=== PATIENT | male | born 1930 | race Asian ===

== ENCOUNTER → 2016-05-27 | Outpatient (CLI) | payer MEDICARE | LOC: OD 08:44 | PROVIDERS: ATTEND Family Medicine | DX: E11.65 Type 2 diabetes mellitus with hyperglycemia (principal) | CPT/HCPCS: 36415; 83036 ==

== ENCOUNTER → 2016-10-30 | Outpatient (CLI) | payer MEDICARE ==
[2016-10-30 10:40] LABS: ANION GAP 11 (5-19); BLOOD UREA NITROGEN 18 mg/dL (7-20); CALCIUM 9.1 mg/dL (8.4-10.2); CARBON DIOXIDE 22 mmol/L (22-30); CHLORIDE 106 mmol/L (98-107); CHOLESTEROL 196.73 mg/dL (0-200); CREATININE RESULT 0.88 mg/dL (0.52-1.25); Direct HDL 43 mg/dL (>40); GLUCOSE 165 mg/dL (75-110); POTASSIUM 4.4 mmol/L (3.6-5.0); SODIUM 138.5 mmol/L (137-145); TRIGLYCERIDES 96 mg/dL (<150); URIC ACID 6.4 mg/dL (3.5-8.5)
[2016-10-30 10:51] LABS: DIRECT LDL 111 mg/dL (<100)
== END ==
LOC: OD 09:17
PROVIDERS: ATTEND Family Medicine
DX: E11.9 Type 2 diabetes mellitus without complications (principal); E78.5 Hyperlipidemia, unspecified; I10 Essential (primary) hypertension; Z79.899 Other long term (current) drug therapy; M10.9 Gout, unspecified
CPT/HCPCS: 36415; 80048; 80061; 82043; 83036; 84443; 84550

== ENCOUNTER → 2017-04-21 | Outpatient (CLI) | payer MEDICARE | LOC: OD 09:29 | PROVIDERS: ATTEND Family Medicine | DX: E11.65 Type 2 diabetes mellitus with hyperglycemia (principal) | CPT/HCPCS: 36415; 83036 ==

== ENCOUNTER → 2017-10-20 | Outpatient (CLI) | payer MEDICARE ==
[2017-10-20 11:21] LABS: ANION GAP 14 (5-19); BLOOD UREA NITROGEN 14 mg/dL (7-20); CALCIUM 9.7 mg/dL (8.4-10.2); CARBON DIOXIDE 24 mmol/L (22-30); CHLORIDE 106 mmol/L (98-107); CHOLESTEROL 152.27 mg/dL (0-200); GLUCOSE 148 mg/dL (75-110); POTASSIUM 4.9 mmol/L (3.6-5.0); SODIUM 143.6 mmol/L (137-145); TRIGLYCERIDES 178 mg/dL (<150); URIC ACID 6.8 mg/dL (3.5-8.5)
[2017-10-20 11:31] LABS: DIRECT LDL 71 mg/dL (<100)
[2017-10-20 11:36] LABS: VLDL CHOLESTEROL 35.6 mg/dL (10-31)
[2017-10-21 13:38] LABS: CREATININE URINE 123.1 mg/dL (Not Estab.); MICROALBUMIN URINE 34.4 ug/mL (Not Estab.)
== END ==
LOC: OD 09:56
PROVIDERS: ATTEND Family Medicine
DX: E11.9 Type 2 diabetes mellitus without complications (principal); E78.5 Hyperlipidemia, unspecified; I10 Essential (primary) hypertension; M10.9 Gout, unspecified; Z79.899 Other long term (current) drug therapy
CPT/HCPCS: 36415; 80048; 80061; 82043; 82570; 83036; 84443; 84550

== ENCOUNTER 2018-01-13 06:17 | Day surgery (SDC) | payer MEDICARE ==
[2018-01-06 10:58] LABS: HEMATOCRIT 41.6 % (37.9-51.0); MEAN CORPUSCULAR HEMOGLOBIN 30.1 pg (27.0-33.4); MEAN CORPUSCULAR HGB CONC 33.5 g/dL (32.0-36.0); MEAN CORPUSCULAR VOLUME 90 fl (80-97); PLATELET COUNT 261 10^3/uL (150-450); RED BLOOD COUNT 4.64 10^6/uL (4.35-5.55); RED CELL DISTRIBUTION WIDTH 14.1 % (11.5-14.0); WHITE BLOOD COUNT 5.3 10^3/uL (4.0-10.5)
[2018-01-06 11:24] LABS: ANION GAP 15 (5-19); BLOOD UREA NITROGEN 14 mg/dL (7-20); CALCIUM 9.5 mg/dL (8.4-10.2); CARBON DIOXIDE 25 mmol/L (22-30); CHLORIDE 104 mmol/L (98-107); GLUCOSE 111 mg/dL (75-110); POTASSIUM 4.9 mmol/L (3.6-5.0); SODIUM 143.6 mmol/L (137-145)
--- NOTE | 2018-01-06 22:20 | EKG REPORT ---
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
[~2018-01-13 06:17] MED LIST: ACETAMINOPHEN 325 MG TABLET PO PRN; LACTATED RINGERS 1000 ML IV PRN; LIDOCAINE 0.5% INJ-PF (5 MG/ML) 50 ML SDV SUBCUT PRN
[2018-01-13] MEDS ORDERED: PROPOFOL INJ 200 MG/20 ML VIAL IV ONE (06:44)
[2018-01-13] MEDS ORDERED: LIDOCAINE 2% INJ-PF (20 MG/ML) 10 ML AMPUL ONE (07:06)
[2018-01-13] MEDS ORDERED: FENTANYL CITRATE INJ/PF 100 MCG/2 ML AMPUL IV PRN ×3 (08:20)
[2018-01-13] MEDS ORDERED: PROMETHAZINE HCL INJ 25 MG/1 ML VIAL IV PRN ×2 (08:20)
[2018-01-13] MEDS ORDERED: DIPHENHYDRAMINE HCL 50 MG/ML VIAL IV PRN (08:20)
--- NOTE | 2018-01-13 09:29 | Operative Report ---
Nonrecallable Operative Report DATE OF SURGERY: 01/13/18 PREOPERATIVE DIAGNOSIS: History of colon polyps POSTOPERATIVE DIAGNOSIS: 1. Colon polyps. 2. Small internal hemorrhoids. OPERATION: 1. Colonoscopy to the cecum. 2. Hot biopsy of smaller colon polyps. 3. Snare polypectomy of larger colon polyps. SURGEON: JASON PFEIFFER ANESTHESIA: LMAC TISSUE REMOVED OR ALTERED: 1. Colon polyps at 60 cm 2. 2. Colon polyp at 58 cm. 3. Colon polyp at 35 cm. 4. Colon polyp at 25 cm. COMPLICATIONS: None apparent ESTIMATED BLOOD LOSS: Minimal PROCEDURE: Procedure in detail: After informed consent was obtained, the patient was brought to the operating room and laid in the left lateral decubitus position. The endoscope was inserted into the rectum. It was passed up the rectum, sigmoid colon, descending colon, across the transverse colon, down the ascending colon, and into the cecum. The ileocecal valve and appendiceal orifice were identified. The scope was then withdrawn, circumferentially noting the mucosa. The prep was fair. Multiple washings and suctionings were required in order to visualize the entirety of the mucosa. This was successful. The scope was withdrawn past the ascending colon, transverse colon , and into the descending colon. At approximately 60 cm there were 2 small polyps immediately adjacent to one another. These were removed via hot biopsy forceps in their entirety. The scope was withdrawn back to approximately 58 cm where a larger, pedunculated polyp was identified. This was removed via snare polypectomy. The scope was withdrawn down to approximately 35 cm, within the sigmoid colon. Another diminutive polyp was identified. This was removed via hot biopsy forceps. The scope was withdrawn to approximately 25 cm where a larger, broad-based polyp was identified. This was removed via snare polypectomy. The scope was then withdrawn into the rectum. A retroflexion maneuver was performed, noting small internal hemorrhoids that were not bleeding. The scope was straightened, air was suctioned from the rectum, the scope was removed, and the procedure was concluded. All sponge, instrument, and needle counts were correct 2. Condition: Stable.
--- NOTE | 2018-01-13 09:30 | Discharge Summary ---
Discharge Summary (SDC) - Discharge Final Diagnosis: Colon polyps, small internal hemorrhoids Date of Surgery: 01/13/18 Condition: Stable Referrals: CLAU DOVER MD [Primary Care Provider] - Discharge Diet: As Tolerated Respiratory Treatments at Home: Deep Breathing/Coughing, Incentive Spirometer Discharge Activity: Activity As Tolerated Home Care Assistance: None Needed Report the Following to Your Physician Immediately: Shortness of Breath, Nausea , Vomiting, Increase in Pain, Fever over 101 Degrees, Unusual Bleeding, Redness , Swelling, Warmth, Increased Soreness
[2018-01-13 11:17] VITALS: BP 148/54
== END 2018-01-13 11:17 | disposition home or self-care (01) ==
LOC: END 06:17
PROVIDERS: ATTEND Surgery
DX: D12.6 Benign neoplasm of colon, unspecified (principal); K64.8 Other hemorrhoids; Z86.010 Personal history of colon polyps; I10 Essential (primary) hypertension; E11.9 Type 2 diabetes mellitus without complications; E78.00 Pure hypercholesterolemia, unspecified; M10.9 Gout, unspecified; M19.90 Unspecified osteoarthritis, unspecified site; Z79.899 Other long term (current) drug therapy; Z79.84 Long term (current) use of oral hypoglycemic drugs
CPT/HCPCS: 45384; 45385; 93005; 82962; 85027; 80048; 88305 ×2; 93010; J2704; J3490; 811

== ENCOUNTER → 2018-04-03 | Outpatient (CLI) | payer MEDICARE ==
--- NOTE | 2018-04-03 10:18 | RADIOLOGY REPORT (SQ) ---
EXAM DESCRIPTION: CHEST PA/LATERAL COMPLETED DATE/TIME: 04/03/2018 9:28 am REASON FOR STUDY: WHEEZING COUGH; PREVIOUS POSITIVE PPD COMPARISON: Two-view chest 08/09/2011 EXAM PARAMETERS: NUMBER OF VIEWS: two views TECHNIQUE: Digital Frontal and Lateral radiographic views of the chest acquired. RADIATION DOSE: NA LIMITATIONS: none FINDINGS: LUNGS AND PLEURA: Minimal bibasilar atelectasis. No fluffy alveolar infiltrates worrisome for pneumonia or pulmonary edema. No pleural effusion. No pneumothorax. No cavitary lesions. MEDIASTINUM AND HILAR STRUCTURES: No masses or contour abnormalities. HEART AND VASCULAR STRUCTURES: Borderline cardiomegaly BONES: Osteopenic. No acute findings HARDWARE: None in the chest. OTHER: No other significant finding. IMPRESSION: Minimal right basilar atelectasis TECHNICAL DOCUMENTATION: JOB ID: [id number] [employer]- All Rights Reserved Reading location - IP/workstation name: [email or web address]
== END ==
LOC: OD 09:08
PROVIDERS: ATTEND Family Medicine
DX: R05 Cough (principal); R06.2 Wheezing; J20.9 Acute bronchitis, unspecified; R76.11 Nonspecific reaction to tuberculin skin test without active tuberculosis
CPT/HCPCS: 71046

== ENCOUNTER → 2018-04-20 | Outpatient (CLI) | payer MEDICARE | LOC: OD 09:39 | PROVIDERS: ATTEND Family Medicine | DX: E11.9 Type 2 diabetes mellitus without complications (principal); Z79.899 Other long term (current) drug therapy | CPT/HCPCS: 36415; 83036 ==

== ENCOUNTER → 2018-10-22 | Outpatient (CLI) | payer MEDICARE ==
[2018-10-22 10:01] LABS: ANION GAP 9 (5-19); BLOOD UREA NITROGEN 19 mg/dL (7-20); CALCIUM 9.2 mg/dL (8.4-10.2); CARBON DIOXIDE 25 mmol/L (22-30); CHLORIDE 107 mmol/L (98-107); CHOLESTEROL 115.06 mg/dL (0-200); GLUCOSE 129 mg/dL (75-110); POTASSIUM 4.5 mmol/L (3.6-5.0); SODIUM 140.9 mmol/L (137-145); TRIGLYCERIDES 112 mg/dL (<150); URIC ACID 6.7 mg/dL (3.5-8.5)
[2018-10-22 10:12] LABS: DIRECT LDL 61 mg/dL (<100)
[2018-10-23 12:38] LABS: CREATININE URINE 90.4 mg/dL (Not Estab.); MICROALBUMIN URINE 19.2 ug/mL (Not Estab.)
== END ==
LOC: OD 08:27
PROVIDERS: ATTEND Family Medicine
DX: E11.9 Type 2 diabetes mellitus without complications (principal); E78.5 Hyperlipidemia, unspecified; I10 Essential (primary) hypertension; M10.9 Gout, unspecified; Z79.899 Other long term (current) drug therapy
CPT/HCPCS: 36415; 80048; 80061; 82043; 82570; 83036; 84443; 84550

== ENCOUNTER → 2019-10-19 | Outpatient (CLI) | payer MEDICARE ==
[2019-10-19 10:10] LABS: ANION GAP 7 (5-19); BLOOD UREA NITROGEN 22 mg/dL (7-20); CALCIUM 9.5 mg/dL (8.4-10.2); CARBON DIOXIDE 26 mmol/L (22-30); CHLORIDE 104 mmol/L (98-107); CHOLESTEROL 116.61 mg/dL (0-200); GLUCOSE 151 mg/dL (75-110); POTASSIUM 4.9 mmol/L (3.6-5.0); TRIGLYCERIDES 118 mg/dL (<150); URIC ACID 6.8 mg/dL (3.5-8.5)
[2019-10-19 10:29] LABS: DIRECT LDL 57 mg/dL (<100)
[2019-10-20 14:37] LABS: CREATININE URINE 144.6 mg/dL (Not Estab.); MICROALBUMIN URINE 17.9 ug/mL (Not Estab.)
== END ==
LOC: OD 08:29
PROVIDERS: ATTEND Family Medicine
DX: E11.9 Type 2 diabetes mellitus without complications (principal); E78.5 Hyperlipidemia, unspecified; I10 Essential (primary) hypertension; M10.9 Gout, unspecified; Z79.899 Other long term (current) drug therapy
CPT/HCPCS: 36415; 80048; 80061; 82043; 82570; 83036; 84443; 84550

== ENCOUNTER → 2020-05-17 | Outpatient (CLI) | payer MEDICARE | LOC: OD 08:24 | PROVIDERS: ATTEND Family Medicine | DX: E11.9 Type 2 diabetes mellitus without complications (principal); Z79.899 Other long term (current) drug therapy | CPT/HCPCS: 36415; 83036 ==